=== PATIENT | male | born 1950 | race Caucasian/White ===

== ENCOUNTER 2020-07-11 17:17 | Emergency (ER) | payer MEDICARE, SELFPAY ==
[2020-07-11] VITALS (8 sets, daily range): BP systolic 113–161; BP diastolic 82–110; PULSE 85–132; RESP 16–117; TEMP 36.8; O2SAT 91–97; BMI 28.5
--- NOTE | 2020-07-11 17:38 | ED.ARRPALP ---
HPI - Arrhythmia/Palpitations General Chief Complaint: Dyspnea Stated Complaint: Difficulty breathing Time Seen by Provider: 07/11/20 21:04 Source: patient Mode of arrival: wheelchair Limitations: no limitations History of Present Illness HPI narrative: 70-year-old male with past medical history of colon resection with colostomy secondary to colon cancer, AFib on Eliquis, and hypertension presents with 2 hours of palpitations and shortness of breath with diaphoresis. Patient feels like he is in AFib. He does take Eliquis, Entresto and carvedilol takes his medications on a daily basis. He does not report any symptoms prior, denies fevers, chills, chest pain or pressure, abdominal pain, abdominal distention, dysuria, hematuria, or edema. Related Data Allergies Allergy/AdvReac Type Severity Reaction Status Date / Time No Known Allergies Allergy Unverified 02/29/20 16:11 Review of Systems Review of Systems: Constitutional: No Fever, No Chills ENT/Mouth: No sore throat, No Rhinorrhea, No Swallowing Difficulty Eyes: No Eye Pain, No Swelling, No Redness Cardiovascular: Positive palpitations, positive shortness of breath, positive diaphoresis, No Chest Pain, No Orthopnea, no Edema Respiratory: No Cough, No Sputum, No Wheezing, positive dyspnea Gastrointestinal: No Nausea, No Vomiting, No Diarrhea, No abdominal Pain, No Hematochezia, No Melena Genitourinary: No Dysuria, No Urinary Frequency, No Hematuria Musculoskeletal: No joint pain, No Myalgias Skin: No Skin Lesions, No rash Neuro: No Weakness, No Numbness, No Dizziness, No Headache Psych: No Anxiety/Panic, No Depression Heme/Lymph: No Bruising, No Lymphadenopathy Endocrine: No Polyuria, No Polydipsia Yes all other systems are reviewed and are negative [facility] Past Medical History Medical History Atrial fibrillation Colostomy in place HTN (hypertension) Social History Social History Alcohol intake: current Alcohol intake frequency: a few times a week Alcohol type: beer Smoking Status: Light tobacco smoker Use of substances other than those prescribed or required for medical reasons: No Advance Directives: No Advance Directives Information Provided: No Physical Exam Vital Signs: Vital Signs: Last Vital Signs Temp 98.3 F 07/11/20 19:03 Pulse 90 07/11/20 20:51 Resp 16 07/11/20 20:51 BP 159/93 H 07/11/20 20:51 Pulse Ox 95 07/11/20 20:51 Body Mass Index 28.5 Appearance: Alert. Oriented X3. No acute distress. Eyes: PERRLA, EOMI, cranial nerves 2-12 intact ENT: Pharynx normal. Neck: Normal inspection. Neck supple. CVS: AFib heart rate 132 irregular rhythm, pulse is equal to all extremities, brisk capillary refill Respiratory: Tachypneic 24, O2 sat 88% on room air. Breath sounds normal. Abdomen: Soft and nontender. Skin: Skin warm and diaphoretic, Normal skin color. Normal skin turgor. Extremities: No lower extremity edema. Neuro: No motor deficit. No sensory deficit. Course Course Course Narrative: 70-year-old male presents with 2 hours of shortness of breath and palpitations consistent with AFib. Heart rate 132, order for Cardizem IV 20 mg. O2 sats 88% on room air respiration rate 24, applied 2 L of nasal cannula O2. 6:12 p.m. heart rate in the 120, blood pressure 134/110. Order for 2nd dose of 20 mg of Cardizem IV. 7:30 p.m., heart rates between 90 and 100, O2 sat 97%. Oxygen discontinued by this [employer]. 8:43 p.m., patient heart rate remained stable in the 80s, ambulatory pulse remains in the high 80s, O2 sat 97%. Patient does not report any chest pain or pressure, MDM - Arrhythmia/Palpitations Differential Diagnosis Differential diagnosis: Likely palpitations, artial fibrillation and artial flutter Medical Records Attestation: I reviewed the patient's medical records. Lab Data Attestation: I reviewed the patient's lab results. Result diagrams: 07/11/20 17:46 07/11/20 17:46 Labs: Lab Results 07/11/20 07/11/20 07/11/20 Range/Units 17:46 17:46 17:46 WBC 8.0 (4.8-10.8) X10*3/uL RBC 4.92 (4.60-5.80) X10*6/uL Hgb 15.4 (14.0-18.0) g/dl Hct 47.2 (42-52) % MCV 95.9 (80-98) fL MCH 31.3 (27.0-33.0) pg MCHC 32.6 (31.0-36.0) g/dl RDW 13.2 (11.0-16.0) % Plt Count 193 (160-400) X10*3/uL MPV 10.7 (9.4-12.4) fL Immature Gran % (Auto) 0.9 H (0.0-0.4) % Neut % (Auto) 77.1 H (45-73) % Lymph % (Auto) 13.7 L (20-40) % Pickett % (Auto) 6.2 (2-11) % Eos % (Auto) 1.6 (0-4) % Baso % (Auto) 0.5 (0-2) % Lymph # (Auto) 1.1 L (1.2-4.9) X10*3/uL Pickett # (Auto) 0.5 (0.1-1.2) X10*3/uL Eos # (Auto) 0.1 (0.0-0.4) X10*3/uL Baso # (Auto) 0.0 (0.0-0.2) X10*3/uL Abs Immat Gran (auto) 0.07 H (0.00-0.03) X10*3/uL Absolute Neuts (auto) 6.2 (2.0-8.3) X10*3/uL Absolute Nucleated RBC 0.000 (0.0-0.012) X10*3/uL Nucleated RBC % (auto) 0.0 (0.0-0.2) /100WBC PT 14.8 H (10.8-13.0) SEC INR 1.2 H (0.9-1.1) APTT 31.1 (24.1-38.0) SEC Sodium 144 (135-145) mmol/L Potassium 4.8 (3.3-5.1) mmol/l Chloride 104 (96-108) mmol/L Carbon Dioxide 29 (22-29) mmol/L Anion Gap 16 (12-20) BUN 22 H (9-16) mg/dL Creatinine 1.32 (0.5-1.4) mg/dL Estim Creat Clear Calc 61.4 Estimated GFR 53 Random Glucose 136 H (60-115) mg/dL Calcium 9.3 (8.4-10.2) mg/dL Magnesium 2.1 (1.6-2.6) mg/dL Troponin I High Sens (<3.5-35.0) ng/L COVID-19 (JUAN C) (Negative) COVID-19 Clin Com 07/11/20 07/11/20 Range/Units 17:46 18:41 WBC (4.8-10.8) X10*3/uL RBC (4.60-5.80) X10*6/uL Hgb (14.0-18.0) g/dl Hct (42-52) % MCV (80-98) fL MCH (27.0-33.0) pg MCHC (31.0-36.0) g/dl RDW (11.0-16.0) % Plt Count (160-400) X10*3/uL MPV (9.4-12.4) fL Immature Gran % (Auto) (0.0-0.4) % Neut % (Auto) (45-73) % Lymph % (Auto) (20-40) % Pickett % (Auto) (2-11) % Eos % (Auto) (0-4) % Baso % (Auto) (0-2) % Lymph # (Auto) (1.2-4.9) X10*3/uL Pickett # (Auto) (0.1-1.2) X10*3/uL Eos # (Auto) (0.0-0.4) X10*3/uL Baso # (Auto) (0.0-0.2) X10*3/uL Abs Immat Gran (auto) (0.00-0.03) X10*3/uL Absolute Neuts (auto) (2.0-8.3) X10*3/uL Absolute Nucleated RBC (0.0-0.012) X10*3/uL Nucleated RBC % (auto) (0.0-0.2) /100WBC PT (10.8-13.0) SEC INR (0.9-1.1) APTT (24.1-38.0) SEC Sodium (135-145) mmol/L Potassium (3.3-5.1) mmol/l Chloride (96-108) mmol/L Carbon Dioxide (22-29) mmol/L Anion Gap (12-20) BUN (9-16) mg/dL Creatinine (0.5-1.4) mg/dL Estim Creat Clear Calc Estimated GFR Random Glucose (60-115) mg/dL Calcium (8.4-10.2) mg/dL Magnesium (1.6-2.6) mg/dL Troponin I High Sens 18.5 (<3.5-35.0) ng/L COVID-19 (JUAN C) Negative (Negative) COVID-19 Clin Com See Note ECG Data Attestation: I personally reviewed and interpreted this ECG as follows: ECG interpretation date: 07/11/20 Interpretation: Ventricular rate 111, QRS 78, QT 326, QTC 443, AFib with RVR, moderate voltage criteria for LVH may be normal variant, cannot rule out septal infarct age undetermined, abnormal EKG, date 07/11/2020 time 5:40 p.m. prior EKG is unavailable secondary to systemic 130 error Second EKG 07/11/2020 at 6:56 p.m. Vent. Rate : 081 BPM Atrial Rate : 074 BPM P-R Int : 000 ms QRS Dur : 090 ms QT Int : 402 ms P-R-T Axes : 000 054 137 degrees QTc Int : 466 ms Atrial fibrillation Moderate voltage criteria for LVH, may be normal variant Cannot rule out Septal infarct (cited on or before 11-JUL-2020) Abnormal ECG When compared with ECG of 11-JUL-2020 17:40, No significant change was found Critical Care Time Critical Care Time Critical Care Time: Yes Total Critical Care Time: 65 Attestation: I have personally provided critical care time exclusive of time spent on separately billable procedures. Time includes review of laboratory data, radiology results, discussion with consultants, and monitoring for potential decompensation. Interventions were performed as documented. Discharge Plan Discharge Clinical Impression: A-fib Qualifiers: Atrial fibrillation type: longstanding persistent Qualified Code(s): I48.11 - Longstanding persistent atrial fibrillation Patient Disposition: Home, Self-Care Instructions: A-fib (Atrial Fibrillation) (ED) Additional Instructions: You were evaluated for AFib. We given 2 doses of IV Cardizem. You must follow-up with your primary care physician and nuclear physician to review your medications. Please return to the emergency department immediately if you develop shortness of breath, palpitations, and diaphoresis. Thank you for choosing this emergency department for evaluation. Please follow-up with primary care physician as needed. Return to the emergency department for any new, concerning, or worsening symptoms. Referrals: Trevor Tong MD [Physician] - 2 days (Uncontrolled AFib)
--- NOTE | 2020-07-11 17:39 | ECG_ITS ---
Test Reason : SHORTNESS OF BREATH Blood Pressure : / mmHG Vent. Rate : 111 BPM Atrial Rate : 394 BPM P-R Int : 000 ms QRS Dur : 078 ms QT Int : 326 ms P-R-T Axes : 000 053 075 degrees QTc Int : 443 ms Atrial fibrillation with rapid ventricular response Moderate voltage criteria for LVH, may be normal variant Cannot rule out Septal infarct , age undetermined Abnormal ECG No previous ECGs available Referred By: April Stokes Electronically Signed By:Edgardo Gutiérrez
--- NOTE | 2020-07-11 17:39 | XR_ITS ---
EXAMINATION: XR CHEST CLINICAL INFORMATION: Shortness of breath. Chest for ventilation. COMPARISON: None TECHNIQUE: Frontal portable view of the chest was obtained. 1825 hours FINDINGS: There are mild increased lung markings and bilateral hazy patchy alveolar opacities. There is mild bronchial wall thickening of the central bronchi. No focal consolidation. No pleural effusion. The heart size is normal. Cardiac and mediastinal contours are normal. XR/XR chest 1V IMPRESSION: Mild increased lung markings. There is mild bronchial wall thickening and hazy patchy alveolar opacities. Differential diagnosis would include multifocal pneumonia, including Covid 19, versus cardiogenic etiology.
[2020-07-11 17:51] LABS: MANUAL DIFF FLAG NO
[2020-07-11] MEDS: dilTIAZem HCL 50 MG/10 ML VIAL 20 MG IVPUSH ×2 (17:51→18:15)
[2020-07-11 17:52] LABS: Basophils Percent Auto 0.5 % (0-2); Eosinophils Absolute Auto 0.1 X10*3/uL (0.0-0.4); Eosinophils Percent Auto 1.6 % (0-4); Hematocrit 47.2 % (42-52); Hemoglobin 15.4 g/dl (14.0-18.0); Imm Gran Abs Auto 0.07 X10*3/uL (0.00-0.03); Imm Gran Pct Auto 0.9 % (0.0-0.4); Lymphocytes Absolute Auto 1.1 X10*3/uL (1.2-4.9); Lymphocytes Percent Auto 13.7 % (20-40); Mean Corpuscular HGB Conc 32.6 g/dl (31.0-36.0); Mean Corpuscular Hemoglobin 31.3 pg (27.0-33.0); Mean Corpuscular Volume 95.9 fL (80-98); Mean Platelet Volume 10.7 fL (9.4-12.4); Monocytes Absolute Auto 0.5 X10*3/uL (0.1-1.2); Monocytes Percent Auto 6.2 % (2-11); Neutrophils Absolute Auto 6.2 X10*3/uL (2.0-8.3); Neutrophils Percent Auto 77.1 % (45-73); Platelet Count 193 X10*3/uL (160-400); Red Blood Count 4.92 X10*6/uL (4.60-5.80); Red Cell Distribution Width 13.2 % (11.0-16.0)
[2020-07-11 17:59] LABS: INTERNATIONAL NORM RATIO 1.2 (0.9-1.1); Prothrombin Time 14.8 SEC (10.8-13.0)
[2020-07-11 18:01] LABS: Partial Thromboplastin Time 31.1 SEC (24.1-38.0)
[2020-07-11 18:21] LABS: Anion Gap 16 (12-20); Blood Urea Nitrogen 22 mg/dL (9-16); Calcium 9.3 mg/dL (8.4-10.2); Carbon Dioxide 29 mmol/L (22-29); Chloride 104 mmol/L (96-108); Creatinine Clr Calc Pharmacy 61.4; Estimated Glomerular Filt Rate 53; Glucose Random 136 mg/dL (60-115); Magnesium 2.1 mg/dL (1.6-2.6); Potassium 4.8 mmol/l (3.3-5.1); Sodium 144 mmol/L (135-145)
[2020-07-11 18:27] LABS: Troponin-I High Sensitivity 18.5 ng/L (<3.5-35.0)
--- NOTE | 2020-07-11 18:53 | ECG_ITS ---
Test Reason : REPEAT Blood Pressure : / mmHG Vent. Rate : 081 BPM Atrial Rate : 074 BPM P-R Int : 000 ms QRS Dur : 090 ms QT Int : 402 ms P-R-T Axes : 000 054 137 degrees QTc Int : 466 ms Atrial fibrillation Moderate voltage criteria for LVH, may be normal variant Cannot rule out Septal infarct (cited on or before 11-JUL-2020) Abnormal ECG When compared with ECG of 11-JUL-2020 17:40, No significant change was found Referred By: April Stokes Electronically Signed By:Edgardo Gutiérrez
[2020-07-11 19:10] LABS: COVID-19 Test Negative (Negative); IDNOW Serial# 9DD0AD1C
--- NOTE | 2020-07-11 20:30 | PC.NURSE ---
This PCT ambulated patient. Prior to ambulation FL -100 / Oxygen 97% upon standing, when patient was walking had steady gate FL-122/ Oxygen of 85%
[2020-07-11] MEDS: 0.9 % Sodium Chloride 1,000 ML 999 ML IVCONT (20:50)
--- NOTE | 2020-07-11 20:53 | PC.NURSE ---
pt tolerated ambulation, denies chest pain or sob. hr remains afib on the monitor. pt skin is pink warm and dry. plan is to discharge home with followup with cardiac.
== END 2020-07-11 21:13 | disposition home or self-care (01) ==
PROVIDERS: Nurse Practitioner Family; Emergency Provider Emergency Medicine; PCP Internal Medicine
DX: I48.11 Longstanding persistent atrial fibrillation (principal); Z20.822 Contact with and (suspected) exposure to COVID-19; I10 Essential (primary) hypertension; F17.210 Nicotine dependence, cigarettes, uncomplicated; Z79.01 Long term (current) use of anticoagulants; Z85.038 Personal history of other malignant neoplasm of large intestine; Z93.3 Colostomy status
CPT/HCPCS: 36415; 71045; 80048; 83735; 84484; 85025; 85610; 85730; 87635; 93005; 96361; 96374; 96376; 99284; 99291